=== PATIENT | female | born 1990 | race Caucasian/White ===

== ENCOUNTER 2018-10-20 10:06 | Emergency (ER) | payer MEDICAID, SELFPAY ==
[~2018-10-20] VITALS: Ht 167.6 cm; Wt 91.4 kg
[2018-10-20 10:06] VITALS: BP 144/85
[2018-10-20] MEDS ORDERED: ORTH1TAB9 PO (10:26)
[2018-10-20] MEDS ORDERED: CLEO300C2 PO (10:40)
== END 2018-10-20 10:43 | disposition home or self-care (01) ==
LOC: M ED 10:06
DX: K04.7 Periapical abscess without sinus (principal); Z88.0 Allergy status to penicillin; Z79.3 Long term (current) use of hormonal contraceptives

== ENCOUNTER → 2019-11-11 | Outpatient (REF) | payer SELFPAY ==
[~2019-11-11] MED LIST: CLEO300C2 PO; ORTH1TAB9 PO
== END ==
LOC: M LAB LCGH 12:14
PROVIDERS: ATTEND Surgery
DX: K35.80 Unspecified acute appendicitis (principal)